=== PATIENT | male | born 1990 | race Caucasian/White ===

== ENCOUNTER 2018-08-27 23:54 | Emergency (ER) | payer SELFPAY ==
[2018-08-28] MEDS ORDERED: Ketorolac 60 MG/2 ML SDV IM ONE (00:06)
--- NOTE | 2018-08-28 00:11 | EDM.PDOC ---
ED HPI GENERAL MEDICAL PROBLEM - General Chief Complaint: Trauma Stated Complaint: PT FELL AND HURT KNEES Time Seen by Provider: 08/27/18 23:57 - History of Present Illness INITIAL COMMENTS - FREE TEXT/NARRATIVE: HISTORY AND PHYSICAL: History of present illness: The patient is a 28-year-old male who presents via EMS after he slipped on the floor at a local restaurant and fell on both of his needs. He did not hit his head pass out or blackout and only complains of bilateral knee pain. He denies any other injuries or any other pain. Review of systems: As per history of present illness and below otherwise all systems reviewed and negative. Past medical history: As per history of present illness and as reviewed below otherwise noncontributory. Surgical history: As per history of present illness and as reviewed below otherwise noncontributory. Social history: No reported history of drug or alcohol abuse. Family history: As per history of present illness and as reviewed below otherwise noncontributory. Physical exam: General: Well-developed well-nourished man who is nontoxic and vital signs are noted by me HEENT: Atraumatic, normocephalic, negative for conjunctival pallor or scleral icterus, mucous membranes moist, throat clear, neck supple, nontender, trachea midline. Lungs: Clear to auscultation, breath sounds equal bilaterally, chest nontender. Heart: S1S2, regular rate and rhythm no overt murmurs. Abdomen: Soft, nondistended, nontender. Negative for masses or hepatosplenomegaly. NABS Pelvis: Stable nontender. Genitourinary: Deferred. Rectal: Deferred. Extremities: Atraumatic with full range of motion of all extremities including the bilateral knees. At bilateral knees there is no ecchymosis abrasions soft tissue swelling or joint effusions but there is tenderness with palpation of the regions bilaterally. There is no proximal or disturbance tenderness defects or deformities, negative for cords or calf pain. Neurovascular unremarkable. Neuro: Awake, alert, oriented. Cranial nerves II through XII unremarkable. Cerebellum unremarkable. Motor and sensory unremarkable throughout. Exam nonfocal. Diagnostics: Bilateral knee x-ray Therapeutics: Toradol IM Impression: Bilateral knee contusions Definitive disposition and diagnosis as appropriate pending reevaluation and review of above. Bilateral Knee Pain Score (Numeric/FACES): 8 - Related Data Allergies Allergy/AdvReac Type Severity Reaction Status Date / Time No Known Allergies Allergy Verified 08/27/18 23:59 Home Meds: Home Meds . [No Known Home Meds] 08/27/18 [History] Past Medical History - Past Health History Medical/Surgical History: Denies Medical/Surgical History Social & Family History - Family History Family Medical History: Noncontributory - Tobacco Use Smoking Status *Q: Never Smoker - Caffeine Use Caffeine Use: Reports: Soda - Recreational Drug Use Recreational Drug Use: No Review of Systems - Review of Systems Review Of Systems: ROS reveals no pertinent complaints other than HPI. ED EXAM, GENERAL - Physical Exam Exam: See Below (see Dictation) Course - Vital Signs Last Recorded V/S: Last Vital Signs Temp 36.6 C 08/27/18 23:56 Pulse 93 08/27/18 23:56 Resp 20 08/27/18 23:56 BP 127/64 08/27/18 23:56 Pulse Ox 92 L 08/27/18 23:56 - Orders/Labs/Meds Orders: Active Orders 24 hr Category Date Time Status Knee 1V or 2V Bi [CR] Stat Exams 08/28/18 00:06 Taken Meds: Medications Discontinued Medications Generic Name Dose Route Start Last Admin Trade Name Freq PRN Reason Stop Dose Admin Ketorolac Tromethamine 60 mg 08/28/18 00:06 08/28/18 00:22 Toradol IM 08/28/18 00:07 60 mg ONETIME ONE Administration Departure - Departure Time of Disposition: 00:40 Disposition: Home, Self-Care 01 Condition: Good Clinical Impression: Knee contusion Qualifiers: Encounter type: initial encounter Laterality: unspecified laterality Qualified Code(s): S80.00XA - Contusion of unspecified knee, initial encounter - Discharge Information Forms: ED Department Discharge Additional Instructions: The following information is given to patients seen in the emergency department who are being discharged to home. This information is to outline your options for follow-up care. We provide all patients seen in our emergency department with a follow-up referral. The need for follow-up, as well as the timing and circumstances, are variable depending upon the specifics of your emergency department visit. If you don't have a primary care physician on staff, we will provide you with a referral. We always advise you to contact your personal physician following an emergency department visit to inform them of the circumstance of the visit and for follow-up with them and/or the need for any referrals to a consulting specialist. The emergency department will also refer you to a specialist when appropriate. This referral assures that you have the opportunity for followup care with a specialist. All of these measure are taken in an effort to provide you with optimal care, which includes your followup. Under all circumstances we always encourage you to contact your private physician who remains a resource for coordinating your care. When calling for followup care, please make the office aware that this follow-up is from your recent emergency room visit. If for any reason you are refused follow-up, please contact the [facility] emergency department at and ask to speak to the emergency department charge nurse. [facility] Specialty Care--Orthopedic clinic Professional [address] [address] Ice and elevate the areas and use [id number] Tylenol and ibuprofen for pain management. Please call and schedule a follow-up appointment in the clinic for further care and evaluation of these orthopedic injuries. Return to ER as needed and as discussed - My Orders Last 24 Hours: My Active Orders 08/28/18 00:06 Knee 1V or 2V Bi [CR] Stat - Assessment/Plan Last 24 Hours: My Active Orders 08/28/18 00:06 Knee 1V or 2V Bi [CR] Stat
--- NOTE | 2018-08-28 00:42 | CR ---
Indication: Fall. Pain Technique: Two views of each knee Comparison: None available Findings/Impression: Bones: Alignment is normal. No fractures or bone lesions. Joint spaces: Preserved. Mild prominence of the bilateral knee lateral compartments. Discoid lateral menisci are considered. An apparent small right suprapatellar effusion. Soft tissues: Unremarkable. Dictated by Butch Ray MD @ 08/28/2018 12:38:25 AM Dictated by: Butch Ray MD @ 08/28/2018 00:40:18 (Electronically Signed)
== END 2018-08-28 01:05 | disposition home or self-care (01) ==
LOC: MW.ED 23:54
DX: S80.02XA Contusion of left knee, initial encounter (principal); S80.01XA Contusion of right knee, initial encounter; W01.0XXA Fall on same level from slipping, tripping and stumbling without subsequent striking against object, initial encounter
CPT/HCPCS: 73560; 96372; 99283; J1885

== ENCOUNTER 2018-09-04 06:01 | Observation (INO) | payer SELFPAY ==
[2018-09-04] MEDS ORDERED: Ondansetron 4 MG/2 ML SDV IVPUSH ONE (06:05)
[2018-09-04] MEDS ORDERED: Sodium Chloride 0.9% 1,000 ML IV ONE (06:05)
--- NOTE | 2018-09-04 06:06 | EDM.PDOC ---
<Jesse Masters - Last Filed: 09/04/18 06:56> ED HPI GENERAL MEDICAL PROBLEM - General Chief Complaint: Abdominal Pain Stated Complaint: UPPER ABDOMINAL PAIN RADIATING TO BACK Time Seen by Provider: 09/04/18 06:05 Source of Information: Reports: Patient - History of Present Illness INITIAL COMMENTS - FREE TEXT/NARRATIVE: HISTORY AND PHYSICAL: History of present illness: presents with left-sided abdominal pain for 1 week he has had some nausea and vomiting decreased bowel movements no fever chills sweats no chest pain shortness of breath headache dizziness palpitation no urine symptoms ] Review of systems: As per history of present illness and below otherwise all systems reviewed and negative. Past medical history: As per history of present illness and as reviewed below otherwise noncontributory. Surgical history: As per history of present illness and as reviewed below otherwise noncontributory. Social history: No reported history of drug or alcohol abuse. Family history: As per history of present illness and as reviewed below otherwise noncontributory. Physical exam: HEENT: Atraumatic, normocephalic, pupils reactive, negative for conjunctival pallor or scleral icterus, mucous membranes moist, throat clear, neck supple, nontender, trachea midline. Lungs: Clear to auscultation, breath sounds equal bilaterally, chest nontender. Heart: S1S2, regular, negative for clicks, rubs, or JVD. Abdomen: Soft, nondistended, nontender. Negative for masses or hepatosplenomegaly. Negative for costovertebral tenderness. Pelvis: Stable nontender. Genitourinary: Deferred. Rectal: Deferred. Extremities: Atraumatic, negative for cords or calf pain. Neurovascular unremarkable. Neuro: Awake, alert, oriented. Cranial nerves II through XII unremarkable. Cerebellum unremarkable. Motor and sensory unremarkable throughout. Exam nonfocal. Diagnostics: [CBC CMP troponin lipase UA CT abdomen pelvis no contrast ] Therapeutics: [ normal saline Zofran 8 mg IV Toradol 30 mg IV ] Impression Abdominal pain ] Definitive disposition and diagnosis as appropriate pending reevaluation and review of above. abdomen Pain Score (Numeric/FACES): 10 - Related Data Allergies Allergy/AdvReac Type Severity Reaction Status Date / Time No Known Allergies Allergy Verified 09/04/18 06:12 Home Meds: Home Meds . [No Known Home Meds] 08/27/18 [History] Past Medical History - Past Health History Medical/Surgical History: Denies Medical/Surgical History Social & Family History - Family History Family Medical History: Noncontributory - Caffeine Use Caffeine Use: Reports: Soda Course - Vital Signs Last Recorded V/S: Last Vital Signs Temp 36.1 C 09/04/18 06:46 Pulse 46 L 09/04/18 06:46 Resp 18 09/04/18 06:46 BP 120/74 09/04/18 06:46 Pulse Ox 95 09/04/18 06:46 - Orders/Labs/Meds Labs: Laboratory Tests 09/04/18 09/04/18 09/04/18 Range/Units 06:20 06:20 06:29 WBC 8.49 (4.0-11.0) K/uL RBC 4.98 (4.50-5.90) M/uL Hgb 14.2 (13.0-17.0) g/dL Hct 41.8 (38.0-50.0) % MCV 83.9 (80.0-98.0) fL MCH 28.5 (27.0-32.0) pg MCHC 34.0 (31.0-37.0) g/dL RDW Std Deviation 40.5 (28.0-62.0) fl RDW Coeff of David 13 (11.0-15.0) % Plt Count 229 (150-400) K/uL MPV 9.40 (7.40-12.00) fL Neut % (Auto) 59.1 (48.0-80.0) % Lymph % (Auto) 25.6 (16.0-40.0) % [place] % (Auto) 11.8 (0.0-15.0) % Eos % (Auto) 3.1 (0.0-7.0) % Baso % (Auto) 0.4 (0.0-1.5) % Neut # (Auto) 5.0 (1.4-5.7) K/uL Lymph # (Auto) 2.2 (0.6-2.4) K/uL Churchill # (Auto) 1.0 H (0.0-0.8) K/uL Eos # (Auto) 0.3 (0.0-0.7) K/uL Baso # (Auto) 0.0 (0.0-0.1) K/uL Nucleated RBC % 0.0 /100WBC Nucleated RBCs # 0 K/uL Sodium 143 (136-148) mmol/L Potassium 3.8 (3.5-5.1) mmol/L Chloride 104 (98-107) mmol/L Carbon Dioxide 28.9 (21.0-32.0) mmol/L BUN 21 H (7.0-18.0) mg/dL Creatinine 2.3 H (0.8-1.3) mg/dL Est Cr Clr Drug Dosing 44.31 mL/min Estimated GFR (MDRD) 33.8 ml/min Glucose 97 (74-106) mg/dL Calcium 8.5 (8.5-10.1) mg/dL Total Bilirubin 0.4 (0.2-1.0) mg/dL AST 11 L (15-37) IU/L ALT 25 (14-63) IU/L Alkaline Phosphatase 90 (46-116) U/L Troponin I < 0.050 (0.000-0.056) ng/mL Total Protein 7.8 (6.4-8.2) g/dL Albumin 3.6 (3.4-5.0) g/dL Globulin 4.2 H (2.6-4.0) g/dL Albumin/Globulin Ratio 0.9 (0.9-1.6) Lipase 81 (73-393) U/L Urine Color YELLOW Urine Appearance CLEAR Urine pH 7.0 (5.0-8.0) Ur Specific [place] <= 1.005 (1.001-1.035) Urine Protein NEGATIVE (NEGATIVE) mg/dL Urine Glucose (UA) NEGATIVE (NEGATIVE) mg/dL Urine Ketones NEGATIVE (NEGATIVE) mg/dL Urine Occult Blood SMALL H (NEGATIVE) Urine Nitrite NEGATIVE (NEGATIVE) Urine Bilirubin NEGATIVE (NEGATIVE) Urine Urobilinogen 0.2 (<2.0) EU/dL Ur Leukocyte Esterase NEGATIVE (NEGATIVE) Urine RBC 0-3 (0-2/HPF) Urine WBC 1-4 (0-5/HPF) Ur Epithelial Cells RARE (NONE-FEW) Urine Bacteria FEW (NEGATIVE) Meds: Medications Discontinued Medications Generic Name Dose Route Start Last Admin Trade Name Freq PRN Reason Stop Dose Admin Sodium Chloride 1,000 mls @ 999 mls/hr 09/04/18 06:05 09/04/18 06:15 Normal Saline IV 09/04/18 07:05 999 mls/hr STAT ONE Administration Ketorolac Tromethamine 30 mg 09/04/18 06:57 09/04/18 07:34 Toradol IVPUSH 09/04/18 06:58 30 mg ONETIME ONE Administration Ondansetron HCl 8 mg 09/04/18 06:05 09/04/18 06:15 Zofran IVPUSH 09/04/18 06:06 8 mg ONETIME ONE Administration Departure - Departure Disposition: Home, Self-Care 01 Clinical Impression: Abdominal pain, Renal insufficiency - Discharge Information Referrals: PCP,None [Primary Care Provider] - Forms: ED Department Discharge Additional Instructions: The following information is given to patients seen in the emergency department who are being discharged to home. This information is to outline your options for follow-up care. We provide all patients seen in our emergency department with a follow-up referral. The need for follow-up, as well as the timing and circumstances, are variable depending upon the specifics of your emergency department visit. If you don't have a primary care physician on staff, we will provide you with a referral. We always advise you to contact your personal physician following an emergency department visit to inform them of the circumstance of the visit and for follow-up with them and/or the need for any referrals to a consulting specialist. The emergency department will also refer you to a specialist when appropriate. This referral assures that you have the opportunity for followup care with a specialist. All of these measure are taken in an effort to provide you with optimal care, which includes your followup. Under all circumstances we always encourage you to contact your private physician who remains a resource for coordinating your care. When calling for followup care, please make the office aware that this follow-up is from your recent emergency room visit. If for any reason you are refused follow-up, please contact the [facility] emergency department at and asked to speak to the emergency department charge nurse. [facility] Primary Care [address] [place] [id number] Follow-up primary care nephrology referral as discussed push fluids clear liquids as directed avoid anti-inflammatory medications return as needed as discussed <Daniel Cardoso - Last Filed: 09/04/18 08:07> ED ROS GENERAL - Review of Systems Review Of Systems: ROS reveals no pertinent complaints other than HPI. ED EXAM, GENERAL - Physical Exam Exam: See Below Course - Vital Signs Text/Narrative:: CT scan and ultrasound of his upper extremity were reported to be negative there was no acute findings his creatinine was noted be elevated I discussed with and the need for close follow-up and the unclear etiology of this they will be given a primary clinic for follow-up and he'll also be given nephrology referral he is to push fluids he's avoid anti-inflammatories and return as needed as discussed impression is #1 left-sided abdominal pain improved etiology to be determined #2 elevated creatinine etiology to be determined #3 left upper extremity pain thromboembolism ruled out Departure - Departure Time of Disposition: 08:06 Condition: Good
[2018-09-04 06:55] LABS: CHLORIDE,CL 104 mmol/L (98-107); SODIUM,NA 143 mmol/L (136-148)
[2018-09-04] MEDS ORDERED: Ketorolac 30 MG/ML SDV IVPUSH ONE (06:57)
--- NOTE | 2018-09-04 07:49 | CT ---
INDICATION: Abdominal pain. TECHNIQUE: A CT volumetric acquisition was performed of the abdomen and pelvis without IV contrast. FINDINGS: The lung bases are clear. There is no evidence of pleural or pericardial fluid. The patient`s liver and spleen demonstrate normal size and uniform density. There is no evidence of mass or inflammatory change within the pancreas or stomach. Gallbladder and bile ducts appear normal and there are no inflammatory changes noted about the gallbladder fossa. The adrenal glands have normal morphology. The kidneys are symmetric in size. There is no evidence of a renal calculus, edema or hydronephrosis. The patient has a retro aortic left renal vein. There is no evidence of abdominal or pelvic lymphadenopathy. The appendix is visualized within the right lower quadrant and appears normal and contains air. There is no evidence of dilatation or edema within the small intestine. There are no inflammatory changes within the small bowel mesentery or greater omentum. The colon appears normal. There is normal appearance of the prostate gland and urinary bladder. The ventral abdominal wall musculature appears intact. IMPRESSION: No acute process identified within the abdomen and pelvis. Please note that all CT scans at this facility use dose modulation, iterative reconstruction, and/or weight-based dosing when appropriate to reduce radiation dose to as low as reasonably achievable. Dictated by Daniel Johnson MD @ Sep 04 2018 7:42AM Signed by Dr. Daniel Johnson @ Sep 04 2018 7:47AM
[2018-09-04] MEDS ORDERED: Acetaminophen 325 MG Tab PO PRN (09:11)
[2018-09-04] MEDS ORDERED: Ondansetron 4 MG Tab.DIS PO PRN (09:11)
--- NOTE | 2018-09-04 09:15 | PCM.HP ---
H&P History of Present Illness - General Date of Service: 09/04/18 Admit Problem/Dx: Admission Diagnosis/Problem Admission Diagnosis/Problem Abdominal pain Source of Information: Patient, Family History Limitations: Reports: No Limitations - History of Present Illness Initial Comments - Free Text/Narative: The patient is an otherwise healthy 28-year-old gentleman who had presented to the emergency department primarily with a complaint of left upper quadrant abdominal pain. The patient had some nausea and vomiting initially but not now. Patient says that his pain is somewhat subsided. Patient says that the abdominal pain has radiated into the center of his abdomen and his back on both sides. He has not been taking any medications and has no chronic health history. The patient does have a history in his family of diabetes. The patient has no other complaints at the present time. Onset of Symptoms: Reports: Gradual Duration of Symptoms: Reports: Day(s): Location: Reports: Abdomen Quality: Reports: Dull, Pressure, Throbbing Severity: Moderate Improves with: Reports: Rest Worsens with: Reports: Eating Context: Denies: Sick Contact Associated Symptoms: Reports: Nausea/Vomiting abdomen Pain Score (Numeric/FACES): 10 - Related Data Allergies/Adverse Reactions: Allergies Allergy/AdvReac Type Severity Reaction Status Date / Time No Known Allergies Allergy Verified 09/04/18 06:12 Home Medications: Home Meds . [No Known Home Meds] 08/27/18 [History] Past Medical History - Past Health History Medical/Surgical History: Denies Medical/Surgical History HEENT History: Reports: None Cardiovascular History: Reports: None Respiratory History: Reports: None Gastrointestinal History: Reports: None Genitourinary History: Reports: None Musculoskeletal History: Reports: None Neurological History: Reports: None Psychiatric History: Reports: None Endocrine/Metabolic History: Reports: None Hematologic History: Reports: None Immunologic History: Reports: None Oncologic (Cancer) History: Reports: None Dermatologic History: Reports: None - Infectious Disease History Infectious Disease History: Reports: None Social & Family History - Family History Family Medical History: Noncontributory - Tobacco Use Smoking Status *Q: Never Smoker - Caffeine Use Caffeine Use: Reports: Soda - Recreational Drug Use Recreational Drug Use: No - Living Situation & Occupation Living situation: Reports: , with Spouse Occupation: Employed H&P Review of Systems - Review of Systems: Review Of Systems: See Below General: Reports: No Symptoms HEENT: Reports: No Symptoms Pulmonary: Reports: No Symptoms Cardiovascular: Reports: No Symptoms Gastrointestinal: Reports: Abdominal Pain, Decreased Appetite, Nausea, Vomiting Genitourinary: Reports: No Symptoms Musculoskeletal: Reports: No Symptoms Skin: Reports: No Symptoms Psychiatric: Reports: No Symptoms Neurological: Reports: No Symptoms Hematologic/Lymphatic: Reports: No Symptoms Immunologic: Reports: No Symptoms Exam - Exam Exam: See Below - Vital Signs Vital Signs: Last Vital Signs Temp 36.1 C 09/04/18 06:46 Pulse 53 L 09/04/18 08:14 Resp 16 09/04/18 08:14 BP 117/74 09/04/18 08:14 Pulse Ox 96 09/04/18 08:14 Weight: 112 kg - Exam Quality Assessment: No: Supplemental Oxygen General: Alert, Oriented, Cooperative HEENT: Conjunctiva Clear, EACs Clear, EOMI, Mucosa Moist & [place], Pupils Equal, PERRLA Neck: Supple, Trachea Midline Lungs: Clear to Auscultation, Normal Respiratory Effort Cardiovascular: Regular Rhythm, Bradycardia (41 BPM on EKG) GI/Abdominal Exam: Normal Bowel Sounds, Soft, Non-Tender, No Distention, Other ( Obese). No: Guarding, Rigid, Rebound (Male) Exam: Deferred Rectal (Males) Exam: Deferred Back Exam: Normal Inspection, Full Range of Motion Extremities: Normal Inspection, Normal Range of Motion, No Pedal Edema Skin: Warm, Dry, Intact Neurological: Cranial Nerves Intact Neuro Extensive - Mental Status: Alert, Oriented x3 Neuro Extensive - Motor, Sensory, Reflexes: CN II-XII Intact Psychiatric: Alert, Normal Affect, Normal Mood - Patient Data Lab Results Last 24 hrs: Laboratory Results - last 24 hr 09/04/18 09/04/18 09/04/18 Range/Units 06:20 06:20 06:29 WBC 8.49 (4.0-11.0) K/uL RBC 4.98 (4.50-5.90) M/uL Hgb 14.2 (13.0-17.0) g/dL Hct 41.8 (38.0-50.0) % MCV 83.9 (80.0-98.0) fL MCH 28.5 (27.0-32.0) pg MCHC 34.0 (31.0-37.0) g/dL RDW Std Deviation 40.5 (28.0-62.0) fl RDW Coeff of David 13 (11.0-15.0) % Plt Count 229 (150-400) K/uL MPV 9.40 (7.40-12.00) fL Neut % (Auto) 59.1 (48.0-80.0) % Lymph % (Auto) 25.6 (16.0-40.0) % [place] % (Auto) 11.8 (0.0-15.0) % Eos % (Auto) 3.1 (0.0-7.0) % Baso % (Auto) 0.4 (0.0-1.5) % Neut # (Auto) 5.0 (1.4-5.7) K/uL Lymph # (Auto) 2.2 (0.6-2.4) K/uL [place] # (Auto) 1.0 H (0.0-0.8) K/uL Eos # (Auto) 0.3 (0.0-0.7) K/uL Baso # (Auto) 0.0 (0.0-0.1) K/uL Nucleated RBC % 0.0 /100WBC Nucleated RBCs # 0 K/uL Sodium 143 (136-148) mmol/L Potassium 3.8 (3.5-5.1) mmol/L Chloride 104 (98-107) mmol/L Carbon Dioxide 28.9 (21.0-32.0) mmol/L BUN 21 H (7.0-18.0) mg/dL Creatinine 2.3 H (0.8-1.3) mg/dL Est Cr Clr Drug Dosing 44.31 mL/min Estimated GFR (MDRD) 33.8 ml/min Glucose 97 (74-106) mg/dL Calcium 8.5 (8.5-10.1) mg/dL Total Bilirubin 0.4 (0.2-1.0) mg/dL AST 11 L (15-37) IU/L ALT 25 (14-63) IU/L Alkaline Phosphatase 90 (46-116) U/L Troponin I < 0.050 (0.000-0.056) ng/mL Total Protein 7.8 (6.4-8.2) g/dL Albumin 3.6 (3.4-5.0) g/dL Globulin 4.2 H (2.6-4.0) g/dL Albumin/Globulin Ratio 0.9 (0.9-1.6) Lipase 81 (73-393) U/L Urine Color YELLOW Urine Appearance CLEAR Urine pH 7.0 (5.0-8.0) Ur Specific [place] <= 1.005 (1.001-1.035) Urine Protein NEGATIVE (NEGATIVE) mg/dL Urine Glucose (UA) NEGATIVE (NEGATIVE) mg/dL Urine Ketones NEGATIVE (NEGATIVE) mg/dL Urine Occult Blood SMALL H (NEGATIVE) Urine Nitrite NEGATIVE (NEGATIVE) Urine Bilirubin NEGATIVE (NEGATIVE) Urine Urobilinogen 0.2 (<2.0) EU/dL Ur Leukocyte Esterase NEGATIVE (NEGATIVE) Urine RBC 0-3 (0-2/HPF) Urine WBC 1-4 (0-5/HPF) Ur Epithelial Cells RARE (NONE-FEW) Urine Bacteria FEW (NEGATIVE) Result Diagrams: 09/04/18 06:20 09/04/18 06:20 - Problem List (1) Bradycardia with 41-50 beats per minute SNOMED Code(s): 51606319 ICD Code: R00.1 - BRADYCARDIA, UNSPECIFIED Status: Chronic Priority: High Current Visit: Yes Problem Details: Asymptomatic (2) Abdominal pain SNOMED Code(s): 01025360 ICD Code: R10.9 - UNSPECIFIED ABDOMINAL PAIN Status: Acute Current Visit : Yes Qualifiers: Abdominal location: left upper quadrant Qualified Code(s): R10.12 - Left upper quadrant pain (3) Obesity (BMI 30-39.9) SNOMED Code(s): 810839570, 922632720 ICD Code: E66.9 - OBESITY, UNSPECIFIED Status: Acute Priority: High Current Visit: Yes (4) Renal insufficiency SNOMED Code(s): 121379393, 761452668 ICD Code: N28.9 - DISORDER OF KIDNEY AND URETER, UNSPECIFIED Status: Acute Priority: High Current Visit: Yes Problem List Initiated/Reviewed/Updated: Yes Orders Last 24hrs: Active Orders 24 hr Category Date Time Status Patient Status [ADT] Stat ADT 09/04/18 08:32 Active Cardiac Monitoring [RC] CONTINUOUS Care 09/04/18 09:11 Ordered EKG 12 Lead [EKG Documentation Completion] [RC] STAT Care 09/04/18 08:12 Active Oxygen Therapy [RC] PRN Care 09/04/18 09:11 Ordered Up ad Jennifer [RC] ASDIRECTED Care 09/04/18 09:11 Ordered VTE/DVT Education [RC] PER UNIT ROUTINE Care 09/04/18 09:11 Ordered Vital Signs [RC] Q4H Care 09/04/18 09:11 Ordered Regular Diet [DIET] Diet 09/04/18 Lunch Ordered H PYLORI STOOL ANTIGEN [MREF] Routine Lab 09/04/18 09:11 Ordered MAGNESIUM [CHEM] Routine Lab 09/04/18 09:11 Ordered Acetaminophen [Tylenol] Med 09/04/18 09:11 Ordered 650 mg PO Q4H PRN Heparin Sodium Med 09/04/18 09:15 Ordered 5,000 units SUBCUT Q8H Ondansetron [Zofran ODT] Med 09/04/18 09:11 Ordered 4 mg PO Q6H PRN Sodium Chloride 0.9% [Normal Saline] 1,000 ml Med 09/04/18 09:15 Ordered IV ASDIRECTED Resuscitation Status Routine Resus Stat 09/04/18 09:11 Ordered Assessment/Plan Comment:: The patient is an otherwise healthy 28-year-old gentleman who will be admitted to observation. The patient does have a creatinine of 2.3 and I have no prior tests to compare. As a result of this the patient will be fluid hydrated and his creatinine will be rechecked. With regards to the patient's abdominal pain I 've ordered H. pylori testing for now. If this is positive we will treat the patient accordingly. The patient had a CT scan of his abdomen which was obtained at date of admission and this did not show any specific abnormality to explain the patient's pain. This was interpreted by radiology is having no acute process identified within the abdomen and pelvis. Interestingly, the patient does have sinus bradycardia with 41 bpm on EKG. I explained this may be normal for him however, I've ordered a magnesium testing and that the patient should be on telemetry as well. Patient does have a strong family history of diabetes and I have ordered a hemoglobin A1c to help exclude this. The patient will also be kept on Lovenox for DVT prophylaxis and of also ordered the patient to ambulate. The patient should be appropriate for discharge tomorrow after further testing is completed.
[2018-09-04] MEDS: Sodium Chloride 0.9% 1,000 ML IV SCH ×2 (10:53→23:18)
[2018-09-04] MEDS: Heparin Sodium 5,000 Units/ML Vial SUBCUT SCH ×3 (10:53→21:48)
[2018-09-04 11:01] LABS: HEMOGLOBIN A1C 5.9 % (4.5-6.2)
[2018-09-05] MEDS: Heparin Sodium 5,000 Units/ML Vial SUBCUT SCH (05:12)
--- NOTE | 2018-09-05 09:43 | PCM.DCSUM1 ---
Discharge Summary - Hospital Course Diagnosis: Stroke: No - Discharge Data Discharge Date: 09/05/18 Discharge Disposition: Home, Self-Care 01 Condition: Good - Discharge Diagnosis/Problem(s) (1) Bradycardia with 41-50 beats per minute SNOMED Code(s): 59479309 ICD Code: R00.1 - BRADYCARDIA, UNSPECIFIED Status: Chronic Priority: High Problem Details: Asymptomatic (2) Abdominal pain SNOMED Code(s): 18855116 ICD Code: R10.9 - UNSPECIFIED ABDOMINAL PAIN Status: Acute Qualifiers: Abdominal location: left upper quadrant Qualified Code(s): R10.12 - Left upper quadrant pain (3) Obesity (BMI 30-39.9) SNOMED Code(s): 747679486, 571344790 ICD Code: E66.9 - OBESITY, UNSPECIFIED Status: Acute Priority: High (4) Renal insufficiency SNOMED Code(s): 864752565, 818754623 ICD Code: N28.9 - DISORDER OF KIDNEY AND URETER, UNSPECIFIED Status: Acute Priority: High - Patient Summary/Data Hospital Course: The patient is an otherwise healthy 28-year-old gentleman who had presented to the emergency department primarily with a complaint of left upper quadrant abdominal pain. The patient also had been admitted out of concern for asymptomatic bradycardia. EKG had shown 41 ventricular beats per minute. The patient had some nausea and vomiting initially but not now. Patient says that his pain is somewhat subsided. Patient says that the abdominal pain has radiated into the center of his abdomen and his back on both sides. He has not been taking any medications and has no chronic health history. The patient does have a history in his family of diabetes. As a part of testing the patient had a hemoglobin A1c which were shown to be at 5.9%. Stool antigen for H. pylori he is currently pending. I have discussed with the patient that his left upper quadrant pain can be the result of H. pylori infection. He should follow up with her primary care physician. The patient had been on telemetry throughout short course of hospitalization and he did not have any abnormal incidences other than sinus bradycardia. The patient has been completely asymptomatic for this and is likely his bradycardic is normal for him. By day of discharge the patient had been pain free. He had been asymptomatic with his bradycardia. The patient's renal condition is likely chronic in nature and he's been recommended to follow up with nephrology with regards to this. The patient's creatinine with hydration improved from 2.3-1.8 mg/dL. The patient is to continue with his diet as tolerated. He is also to have activity as tolerated. The patient has been hemodynamically stable and he is discharged from acute hospitalization with the recommendations listed above. - Patient Instructions Diet: Usual Diet as Tolerated Activity: As Tolerated Notify Provider of: Fever, Nausea and/or Vomiting - Discharge Plan *PRESCRIPTION DRUG MONITORING PROGRAM REVIEWED*: No *COPY OF PRESCRIPTION DRUG MONITORING REPORT IN PATIENT LORI: No Prescriptions/Med Rec: Omeprazole 20 mg PO BID #30 tablet. Home Medications: Home Meds Omeprazole 20 mg PO BID #30 tablet. 09/05/18 [Rx] Oxygen Therapy Mode: Room Air Patient Handouts: Bradycardia, Adult, Abdominal Pain, Adult, [id number], Chronic Kidney Disease, Adult, [id number], Omeprazole tablets (OTC) Referrals: Darion Vasquez MD [Resident] - (Please call the clinic tomorrow for a follow appointment after 1 week. ) Mahad Barnes MD [Physician] - - Discharge Summary/Plan Comment DC Time >30 min.: Yes - General Info Date of Service: 09/05/18 Admission Dx/Problem (Free Text: Admission Diagnosis/Problem Admission Diagnosis/Problem Abdominal pain, sinus bradycardia, acute renal insufficiency Subjective Update: Much better today. Ambulating. Feels like he can go home. Functional Status: Reports: Pain Controlled - Review of Systems General: Reports: No Symptoms HEENT: Reports: No Symptoms Pulmonary: Reports: No Symptoms Cardiovascular: Reports: No Symptoms Gastrointestinal: Reports: No Symptoms Genitourinary: Reports: No Symptoms Musculoskeletal: Reports: No Symptoms Skin: Reports: No Symptoms Neurological: Reports: No Symptoms Psychiatric: Reports: No Symptoms - Patient Data Vitals - Most Recent: Last Vital Signs Temp 36.4 C 09/05/18 03:00 Pulse 43 L 09/05/18 03:00 Resp 16 09/05/18 03:00 BP 118/73 09/05/18 03:00 Pulse Ox 95 09/05/18 03:00 Weight - Most Recent: 112 kg I&O - Last 24 hours: Intake & Output 09/04/18 09/05/18 09/05/18 22:59 06:59 14:59 Intake Total 7398 9781 Output Total 600 8345 Balance 678 -204 Lab Results - Last 24 hrs: Laboratory Results - last 24 hr 09/04/18 09/05/18 09/05/18 Range/Units 06:20 07:24 07:24 WBC 6.76 (4.0-11.0) K/uL RBC 4.59 (4.50-5.90) M/uL Hgb 13.0 (13.0-17.0) g/dL Hct 38.8 (38.0-50.0) % MCV 84.5 (80.0-98.0) fL MCH 28.3 (27.0-32.0) pg MCHC 33.5 (31.0-37.0) g/dL RDW Std Deviation 41.0 (28.0-62.0) fl RDW Coeff of David 13 (11.0-15.0) % Plt Count 225 (150-400) K/uL MPV 9.70 (7.40-12.00) fL Neut % (Auto) 54.1 (48.0-80.0) % Lymph % (Auto) 30.5 (16.0-40.0) % [place] % (Auto) 10.4 (0.0-15.0) % Eos % (Auto) 4.6 (0.0-7.0) % Baso % (Auto) 0.4 (0.0-1.5) % Neut # (Auto) 3.7 (1.4-5.7) K/uL Lymph # (Auto) 2.1 (0.6-2.4) K/uL [place] # (Auto) 0.7 (0.0-0.8) K/uL Eos # (Auto) 0.3 (0.0-0.7) K/uL Baso # (Auto) 0.0 (0.0-0.1) K/uL Nucleated RBC % 0.0 /100WBC Nucleated RBCs # 0 K/uL Sodium 143 (136-148) mmol/L Potassium 4.2 (3.5-5.1) mmol/L Chloride 107 (98-107) mmol/L Carbon Dioxide 25.5 (21.0-32.0) mmol/L BUN 17 (7.0-18.0) mg/dL Creatinine 1.8 H (0.8-1.3) mg/dL Est Cr Clr Drug Dosing 56.61 mL/min Estimated GFR (MDRD) 44.8 ml/min Glucose 97 (74-106) mg/dL Hemoglobin A1c 5.9 (4.5-6.2) % Calcium 8.3 L (8.5-10.1) mg/dL Med Orders - Current: Current Medications Acetaminophen (Tylenol) 650 mg PO Q4H PRN PRN Reason: Pain (Mild 1-3)/fever Last Admin: 09/05/18 01:54 Dose: 650 mg Heparin Sodium (Porcine) (Heparin Sodium) 5,000 units SUBCUT Q8HR [facility] Last Admin: 09/05/18 05:12 Dose: Not Given Sodium Chloride (Normal Saline) 1,000 mls @ 75 mls/hr IV ASDIRECTED [facility] Last Admin: 09/04/18 23:18 Dose: 75 mls/hr Ondansetron HCl (Zofran Odt) 4 mg PO Q6H PRN PRN Reason: nausea, able to take PO Discontinued Medications Sodium Chloride (Normal Saline) 1,000 mls @ 999 mls/hr IV STAT ONE Stop: 09/04/18 07:05 Last Admin: 09/04/18 06:15 Dose: 999 mls/hr Ketorolac Tromethamine (Toradol) 30 mg IVPUSH ONETIME ONE Stop: 09/04/18 06:58 Last Admin: 09/04/18 07:34 Dose: 30 mg Ondansetron HCl (Zofran) 8 mg IVPUSH ONETIME ONE Stop: 09/04/18 06:06 Last Admin: 09/04/18 06:15 Dose: 8 mg - Exam Quality Assessment: Denies: Supplemental Oxygen General: Reports: Alert, Oriented, Cooperative, No Acute Distress HEENT: Reports: Pupils Equal, Pupils Reactive Neck: Reports: Supple, Trachea Midline Lungs: Reports: Clear to Auscultation, Normal Respiratory Effort Cardiovascular: Reports: Regular Rhythm, No Murmurs, Bradycardia GI/Abdominal Exam: Normal Bowel Sounds, Soft, No Distention (Male) Exam: Deferred Rectal (Males) Exam: Deferred Back Exam: Reports: Normal Inspection, Full Range of Motion Extremities: Normal Inspection, Normal Range of Motion, No Pedal Edema Skin: Reports: Warm, Dry, Intact Neurological: Reports: No New Focal Deficit Psy/Mental Status: Reports: Alert, Normal Affect, Normal Mood
== END 2018-09-05 10:30 | disposition home or self-care (01) ==
LOC: MW.ED 06:01 → MW.MS 08:59
PROVIDERS: ADMIT Internal Medicine; ATTEND Internal Medicine
DX: R00.1 Bradycardia, unspecified (principal); N28.9 Disorder of kidney and ureter, unspecified; R10.12 Left upper quadrant pain; E66.9 Obesity, unspecified; Z68.39 Body mass index [BMI] 39.0-39.9, adult
CPT/HCPCS: 36415; 74176; 80048; 80053; 81001; 83036; 83690; 83735; 84484; 85025; 87338; 93005; 96361; 96374; 96375; 99285; A9270; G0378; J1885; J2405; J7040; 99284